=== PATIENT | female | born 1950 | race Caucasian/White ===

== ENCOUNTER 2017-10-31 17:43 | Emergency (ER) | payer BC, MEDICARE, OTHER ==
[~2017-10-31] VITALS: Ht 152.4 cm; Wt 90.7 kg
[~2017-10-31 17:43] MED LIST: AMLO5TAB4 PO; LANS30CA54 PO; LEVO25TA2 PO; LOSA100T15 PO; MULT1TAB PO; SIMV20TA6 PO
[2017-10-31] MEDS ORDERED: OMEP20CA10 PO (18:00)
[2017-10-31] MEDS ORDERED: METO-357 PO (18:00)
--- NOTE | 2017-10-31 19:06 | NUR ---
Patient discharged to home in stable conditon. Written and verbal after care instructions given. Patient verbalizes understanding of instructions.PT WALKS IN STEADY GAIT, NO SIGN OF DISTRESS. PT WITH FAMILY MEMBER
== END 2017-10-31 19:12 | disposition home or self-care (01) ==
LOC: ER 17:44
DX: L03.221 Cellulitis of neck (principal); I10 Essential (primary) hypertension; K21.9 Gastro-esophageal reflux disease without esophagitis; F17.200 Nicotine dependence, unspecified, uncomplicated; Z88.8 Allergy status to other drugs, medicaments and biological substances; Z91.018 Allergy to other foods
CPT/HCPCS: A4663

== ENCOUNTER 2018-04-29 18:55 | Emergency (ER) | payer MEDICARE, OTHER ==
[~2018-04-29] VITALS: Ht 152.4 cm; Wt 95.3 kg
[~2018-04-29 18:55] MED LIST changes: -LANS30CA54 PO; -LEVO25TA2 PO; -LOSA100T15 PO; +LOSA100T31 PO; +METO-357 PO; -MULT1TAB PO; +OMEP20CA10 PO; -SIMV20TA6 PO
[2018-04-29] MEDS ORDERED: NAPROXEN 500 MG TABLET ONE (19:26)
[2018-04-29] MEDS ORDERED: NAPROXEN 500 MG TABLET PO ONE (19:30)
--- NOTE | 2018-04-29 20:02 | NUR ---
PATIENT STATES "I FELL ALOT BETTER NOW. I WOULD LIKE TO BE D/C'ED." DR PATTERSON MADE AWARE
--- NOTE | 2018-04-29 20:07 | NUR ---
Patient discharged to home in stable conditon WITH DAUGHTER TAKING PATIENT HOME. Written and verbal after care instructions given. Patient verbalizes understanding of instructions.WAS GIVEN RX OF NAPROSYN 500MG PO BIB. WALKED OUT OF ER WITH NO DISTRESS NOTED
[2018-04-29 20:08] VITALS: BP 108/60
== END 2018-04-29 20:09 | disposition home or self-care (01) ==
LOC: ER 18:55
DX: M47.9 Spondylosis, unspecified (principal); I10 Essential (primary) hypertension; K21.9 Gastro-esophageal reflux disease without esophagitis; F17.200 Nicotine dependence, unspecified, uncomplicated; Z88.8 Allergy status to other drugs, medicaments and biological substances; Z91.018 Allergy to other foods; Z79.899 Other long term (current) drug therapy
CPT/HCPCS: A4663

== ENCOUNTER 2018-05-02 20:09 | Emergency (ER) | payer OTHER ==
[~2018-05-02] VITALS: Ht 152.4 cm; Wt 97.5 kg
--- NOTE | 2018-05-02 20:19 | NUR ---
PATIENT COMES IN WITH C/O HTN 1-2 HOURS LIBRARY [employer]. HIGHEST BP 190/113, PATIENT TOOK AN ADDITIONAL METOPROLOL 50MG AFTER FINDING THAT HER BP WAS ELEVATED. DENIES CP/SOB/N/V
[2018-05-02] MEDS ORDERED: ASPIRIN 81 MG TAB.CHEW PO ONE (20:45)
[2018-05-02] MEDS ORDERED: ASPIRIN 81 MG TAB.CHEW ONE (20:48)
--- NOTE | 2018-05-02 20:50 | NUR ---
Pt refused IV, bloodwork, and Xray. notified. Patient discharged to home in stable conditon. Written and verbal after care instructions given. Patient verbalizes understanding of instructions. Pt ambulated out of ER with steady gait, no acute signs of distress, VSS, all belongings taken.
[2018-05-02 20:59] VITALS: BP 123/70
== END 2018-05-02 21:00 | disposition home or self-care (01) ==
LOC: ER 20:11
DX: I10 Essential (primary) hypertension (principal); R00.2 Palpitations; K21.9 Gastro-esophageal reflux disease without esophagitis; F17.200 Nicotine dependence, unspecified, uncomplicated; Z91.018 Allergy to other foods; Z79.899 Other long term (current) drug therapy
CPT/HCPCS: 93005; A4663

== ENCOUNTER 2019-02-04 07:04 | Emergency (ER) | END 2019-02-04 07:41 | disposition home or self-care (01) | DX: R19.7 Diarrhea, unspecified (principal); I10 Essential (primary) hypertension; K21.9 Gastro-esophageal reflux disease without esophagitis; F17.200 Nicotine dependence, unspecified, uncomplicated; Z91.018 Allergy to other foods; Z79.899 Other long term (current) drug therapy ==

== ENCOUNTER 2023-07-09 09:44 | Emergency (ER) | payer MEDICARE, OTHER ==
[~2023-07-09] VITALS: Ht 154.9 cm; Wt 95.3 kg
[~2023-07-09 09:44] MED LIST changes: -OMEP20CA10 PO; +OMEP20CA15 PO
[2023-07-09] MEDS ORDERED: ACETAMINOPHEN ES 500 MG TABLET ONE (11:02)
[2023-07-09] MEDS ORDERED: SULFAMETH/TRIMETH 800/160 MG TABLET ONE (11:02)
[2023-07-09] MEDS: SULFAMETH/TRIMETH 800/160 MG TABLET PO ONE (11:03)
[2023-07-09] MEDS: ACETAMINOPHEN ES 500 MG TABLET PO ONE (11:03)
[2023-07-09] MEDS ORDERED: NYST15PO4 TP (11:32)
[2023-07-09] MEDS ORDERED: SULF1TAB48 PO (11:32)
[2023-07-09] MEDS ORDERED: HYDR-3980 PO (11:32)
[2023-07-09 11:43] VITALS: BP 132/79; TEMP 98.2; O2SAT 95
== END 2023-07-09 11:46 | disposition home or self-care (01) ==
LOC: ER 09:44
DX: L03.116 Cellulitis of left lower limb (principal); I12.9 Hypertensive chronic kidney disease with stage 1 through stage 4 chronic kidney disease, or unspecified chronic kidney disease; N18.9 Chronic kidney disease, unspecified; K21.9 Gastro-esophageal reflux disease without esophagitis; F17.200 Nicotine dependence, unspecified, uncomplicated; Z79.899 Other long term (current) drug therapy; Z91.018 Allergy to other foods
CPT/HCPCS: A4606; A4663; A9150

== ENCOUNTER 2023-07-11 18:53 | Emergency (ER) | payer MEDICARE, OTHER ==
[~2023-07-11] VITALS: Ht 154.9 cm; Wt 95.3 kg
[~2023-07-11 18:53] MED LIST changes: +HYDR-3980 PO; +NYST15PO4 TP; +SULF1TAB48 PO
[2023-07-11] MEDS ORDERED: CLINDAMYCIN 600 MG PIGGYBACK**ER OMNI IV ONE (19:51)
[2023-07-11] MEDS: CLINDAMYCIN PHOSPHATE IV 600 MG in IV DEXTROSE 5% 100 ML IV ONE (20:03)
[2023-07-11 20:09] LABS: BASOPHILS # (AUTO) 0.2 K/UL (0.0-0.2); BASOPHILS % (AUTO) 1.8 % (0.0-2.0); EOSINOPHILS # (AUTO) 0.2 K/uL (0.0-0.7); EOSINOPHILS % (AUTO) 2.1 % (0.0-7.0); HEMATOCRIT 29.7 % (31.2-41.9); HEMOGLOBIN 9.7 g/dL (10.9-14.3); LYMPHOCYTES # (AUTO) 1.9 K/uL (0.8-4.8); LYMPHOCYTES % (AUTO) 18.8 % (20.5-51.5); MEAN CORPUSCULAR HEMOGLOBIN 29.3 uug (24.7-32.8); MEAN CORPUSCULAR HGB CONC 33 g/dL (32.3-35.6); MEAN CORPUSCULAR VOLUME 90.2 fL (75.5-95.3); MONOCYTES # (AUTO) 0.4 K/uL (0.1-1.30); MONOCYTES % (AUTO) 4.5 % (0.0-11.0); NEUTROPHILS # (AUTO) 7.2 K/uL (1.8-8.9); NEUTROPHILS % (AUTO) 72.8 % (38.5-71.5); PLATELET COUNT (AUTO) 267 K/uL (179-408); RED BLOOD CELL COUNT(AUTO) 3.29 MIL/uL (3.63-4.92); RED CELL DISTRIBUTION WIDTH 19.1 % (12.3-17.7); WHITE BLOOD COUNT (AUTO) 9.9 K/uL (3.8-11.8)
[2023-07-11 20:12] LABS: DIFFERENTIAL COMMENT 1
[2023-07-11 20:23] LABS: ALANINE AMINOTRANSFERASE 17 U/L (14-59); ALBUMIN 3.7 g/dL (3.4-5.0); ALKALINE PHOSPHATASE 108 U/L (50-136); ASPARTATE AMINOTRANSFERASE 17 U/L (15-37); BILIRUBIN,TOTAL 0.3 mg/dL (0.2-1.0); CALCIUM 9.1 mg/dL (8.5-10.1); CARBON DIOXIDE 21 mmol/L (21-32); CHLORIDE 101 mmol/L (98-107); CREATININE 3.6 mg/dL (0.6-1.3); GLUCOSE 110 mg/dL (74-106); POTASSIUM 4.9 mmol/L (3.5-5.1); SODIUM SERUM 136 mmol/L (136-145); TOTAL PROTEIN, SERUM 8.9 g/dL (6.4-8.2); UREA NITROGEN, BLOOD 72 mg/dL (7-18)
[2023-07-11] MEDS ORDERED: CLIN-118 PO (20:39)
[2023-07-11 21:24] VITALS: BP 137/68; O2SAT 97
== END 2023-07-11 21:15 | disposition home or self-care (01) ==
LOC: ER 18:57
DX: L03.116 Cellulitis of left lower limb (principal); I12.9 Hypertensive chronic kidney disease with stage 1 through stage 4 chronic kidney disease, or unspecified chronic kidney disease; N18.9 Chronic kidney disease, unspecified; K21.9 Gastro-esophageal reflux disease without esophagitis; F17.200 Nicotine dependence, unspecified, uncomplicated; Z79.899 Other long term (current) drug therapy; Z88.8 Allergy status to other drugs, medicaments and biological substances
CPT/HCPCS: 99284; 96365; 80053; 85025; 87040; 36415; 83605; J3490 ×2; A4606; A4663